=== PATIENT | male | born 1955 | race Caucasian/White ===

== ENCOUNTER → 2016-10-01 | Outpatient (CLI) | payer MEDICARE ==
[2016-10-01 10:38] LABS: ABSOLUTE BASOPHILS # (AUTO) 0.1 10^3/uL (0.0-0.2); ABSOLUTE EOSINOPHILS # (AUTO) 0.2 10^3/uL (0.0-0.6); ABSOLUTE LYMPHOCYTES (AUTO) 1.3 10^3/uL (0.5-4.7); ABSOLUTE MONOCYTES (AUTO) 0.7 10^3/uL (0.1-1.4); ABSOLUTE NEUT (AUTO) 5.1 10^3/uL (1.7-8.2); BASOPHILS % (AUTO) 0.9 % (0-2); EOSINOPHILS % (AUTO) 2.7 % (0-6); HEMATOCRIT 44.4 % (37.9-51.0); HEMOGLOBIN 15.2 g/dL (13.5-17.0); HGB HCT DIFFERENCE 1.2; LYMPHOCYTES % (AUTO) 18.2 % (13-45); MEAN CORPUSCULAR HEMOGLOBIN 28.2 pg (27.0-33.4); MEAN CORPUSCULAR HGB CONC 34.3 g/dL (32.0-36.0); MEAN CORPUSCULAR VOLUME 82 fl (80-97); MONOCYTES % (AUTO) 9.3 % (3-13); RED CELL DISTRIBUTION WIDTH 14.5 % (11.5-14.0); SEGMENTED NEUTROPHILS % (AUTO) 68.9 % (42-78); WHITE BLOOD COUNT 7.4 10^3/uL (4.0-10.5)
[2016-10-01 10:49] LABS: APPEARANCE,URINE CLEAR; BILIRUBIN,URINE NEGATIVE (NEGATIVE); GLUCOSE, URINE >=500 mg/dL (NEGATIVE); KETONES,URINE NEGATIVE (NEGATIVE); LEUKOCYTE ESTERASE,URINE NEGATIVE (NEGATIVE); NITRITE,URINE NEGATIVE (NEGATIVE); PROTEIN,URINE >=500 mg/dL (NEGATIVE); UROBILINOGEN,URINE NEGATIVE mg/dL (<2.0)
[2016-10-01 10:59] LABS: ALANINE AMINOTRANSFERASE 20 U/L (21-72); ALBUMIN 2.8 g/dL (3.5-5.0); ALKALINE PHOSPHATASE 115 U/L (38-126); ANION GAP 9 (5-19); ASPARTATE AMINO TRANSFERASE 22 U/L (17-59); BILIRUBIN,DIRECT 0.4 mg/dL (0.0-0.4); BILIRUBIN,TOTAL 0.5 mg/dL (0.2-1.3); BLOOD UREA NITROGEN 38 mg/dL (7-20); CALCIUM 9.4 mg/dL (8.4-10.2); CARBON DIOXIDE 27 mmol/L (22-30); CHLORIDE 104 mmol/L (98-107); CREATININE RESULT 3.41 mg/dL (0.52-1.25); GLUCOSE 189 mg/dL (75-110); PHOSPHORUS 4.8 mg/dL (2.5-4.5); POTASSIUM 3.7 mmol/L (3.6-5.0); SODIUM 139.7 mmol/L (137-145); TOTAL PROTEIN 5.8 g/dL (6.3-8.2)
[2016-10-01 11:07] LABS: URINE CREATININE 62.2 mg/dL (22-328)
[2016-10-01 11:23] LABS: URINE PROTEIN 891.1 mg/dL (<12)
[2016-10-02 13:48] LABS: VITAMIN D 25-HYDROXY 18.4 ng/mL (30.0-100.0)
== END ==
LOC: OD 09:25
PROVIDERS: ATTEND Internal Medicine
DX: N18.4 Chronic kidney disease, stage 4 (severe) (principal); E55.9 Vitamin D deficiency, unspecified
CPT/HCPCS: 36415; 80053; 81001; 82306; 82570; 83970; 84100; 84156; 85025

== ENCOUNTER → 2017-01-13 | Outpatient (CLI) | payer MEDICARE ==
[2017-01-13 10:48] LABS: APPEARANCE,URINE CLEAR; BILIRUBIN,URINE NEGATIVE (NEGATIVE); GLUCOSE, URINE >=500 mg/dL (NEGATIVE); KETONES,URINE NEGATIVE (NEGATIVE); LEUKOCYTE ESTERASE,URINE NEGATIVE (NEGATIVE); NITRITE,URINE NEGATIVE (NEGATIVE); PROTEIN,URINE >=500 mg/dL (NEGATIVE); URINE SPECIFIC GRAVITY 1.012; UROBILINOGEN,URINE NEGATIVE mg/dL (<2.0)
[2017-01-13 10:49] LABS: ABSOLUTE BASOPHILS # (AUTO) 0.1 10^3/uL (0.0-0.2); ABSOLUTE EOSINOPHILS # (AUTO) 0.2 10^3/uL (0.0-0.6); ABSOLUTE LYMPHOCYTES (AUTO) 1.4 10^3/uL (0.5-4.7); ABSOLUTE MONOCYTES (AUTO) 0.8 10^3/uL (0.1-1.4); ABSOLUTE NEUT (AUTO) 6.5 10^3/uL (1.7-8.2); BASOPHILS % (AUTO) 0.7 % (0-2); EOSINOPHILS % (AUTO) 2.3 % (0-6); HEMATOCRIT 43.3 % (37.9-51.0); HEMOGLOBIN 14.3 g/dL (13.5-17.0); HGB HCT DIFFERENCE -0.4; LYMPHOCYTES % (AUTO) 15.6 % (13-45); MEAN CORPUSCULAR HEMOGLOBIN 27.7 pg (27.0-33.4); MEAN CORPUSCULAR VOLUME 84 fl (80-97); MONOCYTES % (AUTO) 8.5 % (3-13); RED BLOOD COUNT 5.17 10^6/uL (4.35-5.55); RED CELL DISTRIBUTION WIDTH 14.2 % (11.5-14.0); SEGMENTED NEUTROPHILS % (AUTO) 72.9 % (42-78); WHITE BLOOD COUNT 8.9 10^3/uL (4.0-10.5)
[2017-01-13 11:04] LABS: URINE CREATININE 77.8 mg/dL (22-328)
[2017-01-13 11:22] LABS: ALANINE AMINOTRANSFERASE 28 U/L (21-72); ALBUMIN 2.8 g/dL (3.5-5.0); ALKALINE PHOSPHATASE 106 U/L (38-126); ANION GAP 8 (5-19); ASPARTATE AMINO TRANSFERASE 21 U/L (17-59); BILIRUBIN,DIRECT 0.3 mg/dL (0.0-0.4); BILIRUBIN,TOTAL 0.4 mg/dL (0.2-1.3); BLOOD UREA NITROGEN 39 mg/dL (7-20); CALCIUM 8.6 mg/dL (8.4-10.2); CARBON DIOXIDE 25 mmol/L (22-30); CHLORIDE 108 mmol/L (98-107); CREATININE RESULT 3.65 mg/dL (0.52-1.25); GLUCOSE 145 mg/dL (75-110); PHOSPHORUS 5.5 mg/dL (2.5-4.5); POTASSIUM 4.5 mmol/L (3.6-5.0); SODIUM 141.4 mmol/L (137-145); TOTAL PROTEIN 5.6 g/dL (6.3-8.2)
[2017-01-13 11:44] LABS: URINE PROTEIN 1614.4 mg/dL (<12)
== END ==
LOC: OD 09:37
PROVIDERS: ATTEND Internal Medicine
DX: N18.4 Chronic kidney disease, stage 4 (severe) (principal)
CPT/HCPCS: 36415; 80053; 81001; 82570; 83970; 84100; 84156; 85025

== ENCOUNTER 2017-06-06 19:56 | Emergency (ER) | payer MEDICARE ==
[2017-06-06 20:31] LABS: ABSOLUTE BASOPHILS # (AUTO) 0.1 10^3/uL (0.0-0.2); ABSOLUTE EOSINOPHILS # (AUTO) 0.1 10^3/uL (0.0-0.6); ABSOLUTE LYMPHOCYTES (AUTO) 0.7 10^3/uL (0.5-4.7); ABSOLUTE MONOCYTES (AUTO) 1.2 10^3/uL (0.1-1.4); ABSOLUTE NEUT (AUTO) 4.2 10^3/uL (1.7-8.2); EOSINOPHILS % (AUTO) 1.7 % (0-6); HEMATOCRIT 40.5 % (37.9-51.0); HEMOGLOBIN 13.6 g/dL (13.5-17.0); LYMPHOCYTES % (AUTO) 11.3 % (13-45); MEAN CORPUSCULAR HEMOGLOBIN 27.6 pg (27.0-33.4); MEAN CORPUSCULAR HGB CONC 33.5 g/dL (32.0-36.0); MEAN CORPUSCULAR VOLUME 82 fl (80-97); MONOCYTES % (AUTO) 18.9 % (3-13); PLATELET COUNT 212 10^3/uL (150-450); RED BLOOD COUNT 4.91 10^6/uL (4.35-5.55); RED CELL DISTRIBUTION WIDTH 13.5 % (11.5-14.0); SEGMENTED NEUTROPHILS % (AUTO) 67.1 % (42-78); TOTAL CELLS COUNTED % (AUTO) 100 %; WHITE BLOOD COUNT 6.2 10^3/uL (4.0-10.5)
[2017-06-06] MEDS ORDERED: LIDOCAINE 2% VISCOUS SOLN 20 ML UDCUP PO ONE (20:50)
[2017-06-06] MEDS ORDERED: METOCLOPRAMIDE HCL ORAL SOLN 10 MG/10 ML UDCUP PO ONE (20:50)
[2017-06-06] MEDS ORDERED: MAG HYDROX/AL HYDROX/SIMETH SUSP 30 ML UDCUP PO ONE (20:50)
[2017-06-06] MEDS ORDERED: FAMOTIDINE 20 MG TABLET PO ONE (20:50)
[2017-06-06 20:53] LABS: ANION GAP 11 (5-19); BLOOD UREA NITROGEN 63 mg/dL (7-20); CALCIUM 9.2 mg/dL (8.4-10.2); CARBON DIOXIDE 23 mmol/L (22-30); CHLORIDE 105 mmol/L (98-107); GLUCOSE 117 mg/dL (75-110); POTASSIUM 3.9 mmol/L (3.6-5.0); SODIUM 138.8 mmol/L (137-145)
--- NOTE | 2017-06-06 20:56 | ER Document Report ---
ED General - General Chief Complaint: Shortness Of Breath Stated Complaint: DIFFICULTY BREATHING Time Seen by Provider: 06/06/17 20:24 Notes: Patient is a 61 year old male with past medical history of congestive heart failure, chronic kidney disease, hypertension, diabetes who presents with 3 days of progressively worsening shortness of breath. Patient states that the shortness of breath is persistent, worsened by exertion. Nothing improves the shortness of breath. He denies a history of similar symptoms in the past. He denies any increased weight gain, dietary indiscretions or missed medications. He takes both Bumex as well as metolazone. He has not seen his primary doctor regarding today's concerns. He denies any chest pain. No hemoptysis. No pleuritic pain. No unilateral leg swelling. Do not think any form of anticoagulation. States that symptoms have been worsening since onset. He does report that he has had similar symptoms in the past in the setting of fluid overload. He does arrive by EMS. TRAVEL OUTSIDE OF THE [place] IN LAST 30 DAYS: No - Related Data Allergies/Adverse Reactions: Sulfa (Sulfonamide Antibiotics) Allergy (Verified 12/11/15 18:11) Past Medical History - General Information source: Patient - Social History Smoking Status: Current Every Day Smoker Frequency of alcohol use: Occasional Drug Abuse: None Lives with: Alone Family History: Reviewed & Not Pertinent - Past Medical History Cardiac Medical History: Reports: Hx Congestive Heart Failure, Hx Heart Attack, Hx Hypercholesterolemia, Hx Hypertension Denies: Hx Coronary Artery Disease Pulmonary Medical History: Reports: Hx Pneumonia Denies: Hx Asthma, Hx Bronchitis, Hx COPD Neurological Medical History: Reports: Hx Cerebrovascular Accident - stroke in right eye. Denies: Hx Seizures Endocrine Medical History: Reports: Hx Diabetes Mellitus Type 1, Hx Diabetes Mellitus Type 2 Musculoskeltal Medical History: Reports Hx Arthritis - knees Psychiatric Medical History: Reports: Hx Anxiety Comment Only: Hx Depression - anxiety Past Surgical History: Reports: Hx Cardiac Catheterization, Hx Cardiac Surgery - BYPASSX3, Hx Orthopedic Surgery - right leg - Immunizations Hx Diphtheria, Pertussis, Tetanus Vaccination: No Review of Systems - Review of Systems Notes: Constitutional: Negative for fever. HENT: Negative for sore throat. Eyes: Negative for visual changes. Cardiovascular: Negative for chest pain. Respiratory: Positive for shortness of breath. Gastrointestinal: Negative for abdominal pain, vomiting or diarrhea. Genitourinary: Negative for dysuria. Musculoskeletal: Negative for back pain. Skin: Negative for rash. Neurological: Negative for headaches, weakness or numbness. 10 point ROS negative except as marked above and in HPI. Physical Exam - Vital signs Vitals: Resp Pulse Ox 30 H 98 06/06/17 20:15 06/06/17 20:15 Interpretation: Hypertensive, Tachypneic Notes: PHYSICAL EXAMINATION: General: In moderate respiratory distress. HEAD: Atraumatic, normocephalic. EYES: Pupils equal round and reactive to light, extraocular movements intact, sclera anicteric, conjunctiva are normal. ENT: nares patent, oropharynx clear without exudates. Mild dry mucous membranes. NECK: Normal range of motion, supple without lymphadenopathy LUNGS: Tachypneic with an initial respiratory rate of 32 breaths per minute. Slightly diminished at the bases bilaterally. Slight end expiratory wheeze in the lower lobes bilaterally. HEART: Regular rate and rhythm without murmurs ABDOMEN: Soft, nontender, normoactive bowel sounds. No guarding, no rebound. No masses appreciated. EXTREMITIES: Normal range of motion, no pitting or edema. No cyanosis. NEUROLOGICAL: No focal neurological deficits. Moves all extremities spontaneously and on command. PSYCH: Normal mood, normal affect. SKIN: Warm, Dry, normal turgor, no rashes or lesions noted. Course - Re-evaluation Re-evalutation: 06/06/17 20:51 Patient presents with increased shortness of breath for the past 3 days. Patient does have visibly increased work of breathing on initial examination, breathing approximately 28-30 times per minute, saturating 95% on room air. He is quite hypertensive blood pressure 186 on 100. She has no history of COPD or asthma. He does have a known history of CHF but does take both bumetanide as well as metolazone for diuresis. He does not know his dry weight. On examination patient is tachypneic, slightly diminished at the bases bilaterally. Faint end expiratory wheezing at the bases bilaterally. No tachycardia. Patient denies any pleuritic pain, no clinical history or risk factors to suggest acute pulmonary embolus. He states he felt exactly the same in the past and he has become fluid overloaded with associated pulmonary edema. EKG without any acute ischemic changes. Chest x-ray shows cardiomegaly, patchy infiltrate at the right base. Given patient's elevated blood pressure, will begin a nitroglycerin infusion, placed on BiPAP, continue to reassess frequently 06/06/17 21:49 Patient has had improved work of breathing on BiPAP. BP is improved on nitro drip currently at 60 mcg/min. No chest pain. Labs do demonstrate a significant worsening of the patient's renal function currently a creatinine of 6.22 GFR is 9 from 3.8 creatinine in December with a GFR of 21 at that time. His proBNP is also markedly elevated today at 22,900 up from 6800 on the most recent check. His weight however is not increased as his current weight is 105 kg actually down from 108 kg on his most recent visit in December and he has no overt signs of volume overload on chest x-ray or clinical examination. We do not currently have nephrology coverage and I believe the patient may also require interventional cardiology involvement as his troponin is elevated at 0.199 again much elevated from his baseline. Although this could be secondary to his worsening renal function in the context of having increasing shortness of breath for the past several days I cannot definitively exclude this would be an ACS event. He continues on a nitroglycerin drip. Given that he is not having any chest pain I will not yet administer Lovenox. Aspirin has been administered. I have contacted [facility] where patient has been in the past for transfer. They do not immediately have beds available but he will be placed on a waiting list. 06/06/17 22:11 I spoke with who has accepted that patient. They do not have a bed currently. Patient remains clinically improved on BiPAP with a nitroglycerin infusion. Will continue to monitor closely 06/06/17 23:46 Patient has self discontinued BiPAP and continues to breathe at a much more acceptable rate at this time, saturating 94% on room air. He remains without tachycardia and blood pressure is well controlled at this time at 139/83 on 70 mg/min of nitroglycerin. 06/07/17 03:36 Troponin is down trended. Patient continues without chest pain. Continues to tolerate being off of BiPAP. Continues on the nitroglycerin infusion. Awaiting transfer - Vital Signs Vital signs: Temp Pulse Resp BP Pulse Ox 99.1 F 99 26 H 182/79 H 96 06/07/17 11:13 06/07/17 11:13 06/07/17 11:13 06/07/17 11:13 06/07/17 11:13 - Laboratory Result Diagrams: 06/06/17 20:15 06/06/17 20:15 Laboratory results interpreted by me: 06/06/17 06/06/17 06/06/17 20:15 20:15 20:15 Lymphocytes % 11.3 L Monocytes % 18.9 H BUN 63 H Creatinine 6.22 H Est GFR ( Amer) 11 L Est GFR (Non-Af Amer) 9 L Glucose 117 H NT-Pro-B Natriuret Pep 63643 H - Diagnostic Test Radiology reviewed: Image reviewed, Reports reviewed Radiology results interpreted by me: 06/06/17 23:45 Chest x-ray: Patchy infiltrate at the right lower base. Vascular congestion without overt pulmonary edema. Cardiomegaly - EKG Interpretation by Me Additional EKG results interpreted by me: 06/07/17 03:36 Sinus rhythm. Rate 92. Right bundle branch block. No ST elevations or depressions. Unchanged from prior. QTC is 510. Critical Care Note - Critical Care Note Total time excluding time spent on procedures (mins): 36 Comments: Critical care time spent obtaining history from patient or surrogate, discussions with consultants, development of treatment plan with patient or surrogate, evaluation of patient's response to treatment, examination of patient , ordering and performing treatments and interventions, ordering and review of laboratory studies, re-evaluation of patient's condition, ordering and review of radiographic studies and review of old charts Discharge - Discharge Clinical Impression: Hypertensive emergency, Respiratory distress Acute on chronic kidney failure Qualifiers: Acute renal failure type: unspecified Chronic kidney disease stage: unspecified stage Qualified Code(s): N17.9 - Acute kidney failure, unspecified Condition: Fair Disposition: [facility] Referrals: FREDA WALLACE MD [Primary Care Provider] - Follow up as needed
--- NOTE | 2017-06-06 21:05 | RADIOLOGY REPORT (SQ) ---
EXAM DESCRIPTION: CHEST SINGLE VIEW COMPLETED DATE/TIME: 06/06/2017 8:47 pm REASON FOR STUDY: shortness of breath COMPARISON: AP chest 12/11/2015 EXAM PARAMETERS: NUMBER OF VIEWS: One view. TECHNIQUE: Single frontal radiographic view of the chest acquired. RADIATION DOSE: NA LIMITATIONS: Lordotic portable technique FINDINGS: LUNGS AND PLEURA: No opacities, masses or pneumothorax. No pleural effusion. MEDIASTINUM AND HILAR STRUCTURES: No masses. Contour normal. HEART AND VASCULAR STRUCTURES: Mild cardiomegaly, old sternotomy and CABG BONES: No acute findings. HARDWARE: None in the chest. OTHER: No other significant finding. IMPRESSION: NO ACUTE RADIOGRAPHIC FINDING IN THE CHEST. TECHNICAL DOCUMENTATION: JOB ID: [id number] [employer]- All Rights Reserved
[2017-06-06 21:12] LABS: A TYPE INFLUENZA AG NEGATIVE (NEGATIVE); B INFLUENZA AG NEGATIVE (NEGATIVE)
[2017-06-06] MEDS: NITROGLYCERIN/D5W 50 MG/250 ML RTUINJ IV PRN (21:14)
[2017-06-06] MEDS ORDERED: FENOFIBRATE NANOCRYSTALLIZED 145 MG TABLET ONE (21:49)
[2017-06-06] MEDS ORDERED: ASPIRIN 81 MG TABLET, CHEWABLE PO ONE (21:56)
--- NOTE | 2017-06-06 22:40 | EKG REPORT ---
SEVERITY:- ABNORMAL ECG - SINUS RHYTHM PROBABLE LEFT ATRIAL ABNORMALITY RBBB AND LPFB WITH SECONDARY ST-T CHANGES : Confirmed by: Acosta Mcdermott 06-Jun-2017 22:39:39
--- NOTE | 2017-06-07 10:56 | ER Document Report ---
Doctor's Note Notes: 06/07/17 10:48 Patient was rounded upon in the morning after citations were seen, he had taken himself off nitroglycerin and BiPAP, he was attempting to leave but it appears that he did speak to someone at [facility] and was able to get the transfer approved faster. [facility] called back and stated that they will take the patient ED to ED. We are awaiting transport at this time. Patient wishes to go by private vehicle expansion at this is a terrible idea that he needs to be on the nitro drip and on a supplemental oxygenation as he is in obvious respiratory distress. Patient finally agrees and will get back into bed
[2017-06-07] MEDS: NITROGLYCERIN/D5W 50 MG/250 ML RTUINJ IV PRN (11:12)
[2017-06-07] MEDS ORDERED: ACETAMINOPHEN 325 MG TABLET PO ONE (11:16)
[2017-06-07 11:18] VITALS: BP 182/79
== END 2017-06-07 11:48 | disposition short-term general hospital (02) ==
LOC: ER 19:56
DX: N17.9 Acute kidney failure, unspecified (principal); I16.0 Hypertensive urgency; R06.00 Dyspnea, unspecified; F17.200 Nicotine dependence, unspecified, uncomplicated; I50.9 Heart failure, unspecified; E78.00 Pure hypercholesterolemia, unspecified; E11.9 Type 2 diabetes mellitus without complications; I25.2 Old myocardial infarction; Z88.2 Allergy status to sulfonamides; Z86.73 Personal history of transient ischemic attack (TIA), and cerebral infarction without residual deficits; Z95.1 Presence of aortocoronary bypass graft
CPT/HCPCS: 93005; 99291; 96365; 36415; 85025; 80048; 84484; 87804; 83880; 71045; 93010; 94660; A9270 ×4; J3490 ×3

== ENCOUNTER 2020-06-10 19:46 | Inpatient (IN) | payer MEDICARE ==
[2020-06-10 20:20] LABS: HEMATOCRIT 40.6 % (37.9-51.0); HEMOGLOBIN 13.2 g/dL (13.5-17.0); MEAN CORPUSCULAR HEMOGLOBIN 28.6 pg (27.0-33.4); MEAN CORPUSCULAR HGB CONC 32.6 g/dL (32.0-36.0); MEAN CORPUSCULAR VOLUME 88 fl (80-97); PLATELET COUNT 136 10^3/uL (150-450); RED BLOOD COUNT 4.62 10^6/uL (4.35-5.55); RED CELL DISTRIBUTION WIDTH 17.3 % (11.5-14.0); WHITE BLOOD COUNT 9.1 10^3/uL (4.0-10.5)
[2020-06-10 20:32] LABS: ALBUMIN 4.2 g/dL (3.5-5.0); ALKALINE PHOSPHATASE 131 U/L (38-126); ANION GAP 14 (5-19); ASPARTATE AMINO TRANSFERASE 18 U/L (17-59); BILIRUBIN,DIRECT 0.4 mg/dL (0.0-0.4); BILIRUBIN,TOTAL 0.5 mg/dL (0.2-1.3); BLOOD UREA NITROGEN 35 mg/dL (7-20); CALCIUM 9.2 mg/dL (8.4-10.2); CARBON DIOXIDE 27 mmol/L (22-30); CHLORIDE 97 mmol/L (98-107); CREATINE KINASE 61 U/L (55-170); GLUCOSE 227 mg/dL (75-110); TOTAL PROTEIN 7.7 g/dL (6.3-8.2)
[2020-06-10 20:44] LABS: CREATINE KINASE MB 2.1 ng/mL (<4.55)
[2020-06-10 20:45] LABS: ABSOLUTE LYMPHOCYTES# (MANUAL) 0.1 10^3/uL (0.5-4.7); ABSOLUTE MONOCYTES # (MANUAL) 0.1 10^3/uL (0.1-1.4); BASOPHILS % (MANUAL) 0 % (0-2); EOSINOPHILS % (MANUAL) 1 % (0-6); LYMPHOCYTES % (MANUAL) 1 % (13-45); MONOCYTES % (MANUAL) 1 % (3-13); SEGMENTED NEUTROPHILS % (MAN) 97 % (42-78); TOTAL CELLS COUNTED 100
[2020-06-10 20:46] LABS: ANISOCYTOSIS 1+; BURR CELLS SLIGHT; OVALOCYTES SLIGHT; PLATELET COMMENT DECREASED; POIKILOCYTOSIS SLIGHT; TOXIC GRANULATION SLIGHT
[2020-06-10 20:52] LABS: TROPONIN I 0.128 ng/mL
[2020-06-10] MEDS ORDERED: FENTANYL CITRATE INJ/PF 100 MCG/2 ML AMPUL IV ONE (20:55)
[2020-06-10] MEDS ORDERED: SODIUM POLYSTYRENE SULFONATE 15 GM/60 ML PO ONE (21:01)
[2020-06-10] MEDS ORDERED: INSULIN REG, HUMAN 100 UNIT/ML 3 ML VIAL (PYX) IV ONE (21:02)
[2020-06-10] MEDS ORDERED: DEXTROSE 50%-WATER 25 GM/50 ML DISP.SYRIN IV ONE (21:02)
--- NOTE | 2020-06-10 21:11 | RADIOLOGY REPORT (SQ) ---
CLINICAL INDICATION: fall. Pain and swelling. TECHNIQUE: 2 view(s) were obtained of the left knee. COMPARISON: None. FINDINGS: Acute mildly comminuted transverse fracture of the patella. This is nondisplaced. Osteoarthritis. Large joint effusion. Soft tissue swelling. Vascular calcification. IMPRESSION: Acute patellar fracture.
--- NOTE | 2020-06-10 22:08 | RADIOLOGY REPORT (SQ) ---
EXAM DESCRIPTION: CT HEAD WITHOUT CLINICAL HISTORY: 64 years Male, fall, head injury COMPARISON: CT head 12/11/2015 TECHNIQUE: Axial images of the head were performed without the use of intravenous contrast, with sagittal and coronal reformatted images. This exam was performed according to our departmental dose-optimization program which includes use of Automated Exposure Control, adjustment of the mA and/or kV according to patient size and/or use of iterative reconstruction technique. FINDINGS: No skull fracture. No intracranial bleed. No evidence of acute infarct. No evidence of mass or hydrocephalus. There is cortical atrophy and chronic white matter ischemic changes. There are bilateral old lacunar infarcts. There is no significant change, as compared with the prior CT scan. IMPRESSION: No skull fracture. No intracranial bleed.
--- NOTE | 2020-06-10 22:29 | RADIOLOGY REPORT (SQ) ---
Chest and left rib x-ray three views on 06/10/2020 at 9:59 PM CLINICAL INDICATION: Left lower rib pain after fall COMPARISON: Chest x-ray from 06/06/2017 FINDINGS: The patient is status post median sternotomy and CABG. Cardiomegaly is noted. Hilar and mediastinal contours are within normal limits. Mild vascular calcification is noted in the aorta. The lungs are clear. There is no pneumothorax or pleural effusion. Stent is noted in the left upper arm. No acute left rib fracture is noted. IMPRESSION: No acute disease and no acute left rib fracture.
[2020-06-11] MEDS ORDERED: CALCIUM GLUCONATE 1000 MG/10 ML INJ IV ONE (00:42)
[2020-06-11] MEDS ORDERED: FUROSEMIDE INJ/PF 40 MG/4 ML SDV IV ONE (00:45)
[2020-06-11] MEDS ORDERED: DEXTROSE 50%-WATER 25 GM/50 ML DISP.SYRIN IV ONE (00:50)
[2020-06-11] MEDS ORDERED: INSULIN REG, HUMAN 100 UNIT/ML 3 ML VIAL (PYX) IV ONE (00:50)
--- NOTE | 2020-06-11 00:51 | ER Document Report ---
ED Fall - General Chief Complaint: Fall Injury Stated Complaint: KNEE PAIN Time Seen by Provider: 06/10/20 20:41 TRAVEL OUTSIDE OF THE [place] IN LAST 30 DAYS: No - HPI Notes: Patient is a 64-year-old male with end-stage renal disease on dialysis Wednesday, Wednesday, Wednesday who presents after a fall. Patient lost his balance at home and fell onto his left knee. He then fell onto his left ribs and hit the top of his head on the linoleum floor. There was no loss of consciousness. He states he was ambulatory after the event. Patient is complaining of pain to his left knee, left anterior ribs, and the top of his head. He denies any chest pain or shortness of breath. States that he went to his normal dialysis today. - Related data Allergies/Adverse Reactions: Sulfa (Sulfonamide Antibiotics) Allergy (Verified 06/10/20 20:06) Home Medications: sertraline 100mg X2/QD,lansoprazole QD, atorvastatin 80mg QD,. amlodipine 10mg/QD, tamsulosin 0.4mg/QDalprazolam 2mg/prn, Past Medical History - General Information source: Patient, Relative - Social History Smoking Status: Never Smoker Chew tobacco use (# tins/day): No Frequency of alcohol use: None Drug Abuse: None Family History: Reviewed & Not Pertinent Patient has homicidal ideation: No - Past Medical History Cardiac Medical History: Reports: Hx Congestive Heart Failure, Hx Heart Attack, Hx Hypercholesterolemia, Hx Hypertension Denies: Hx Coronary Artery Disease Pulmonary Medical History: Reports: Hx Pneumonia Denies: Hx Asthma, Hx Bronchitis, Hx COPD Neurological Medical History: Reports: Hx Cerebrovascular Accident - stroke in right eye. Denies: Hx Seizures Endocrine Medical History: Reports: Hx Diabetes Mellitus Type 1, Hx Diabetes Mellitus Type 2 Renal/ Medical History: Denies: Hx Peritoneal Dialysis Musculoskeletal Medical History: Reports Hx Arthritis - knees Psychiatric Medical History: Reports: Hx Anxiety Comment Only: Hx Depression - anxiety Past Surgical History: Reports: Hx Cardiac Catheterization, Hx Cardiac Surgery - BYPASSX3, Hx Orthopedic Surgery - right leg - Immunizations Hx Diphtheria, Pertussis, Tetanus Vaccination: No Review of Systems - Review of Systems Notes: CONSTITUTIONAL: No fever, fatigue or weight loss. SKIN: No rash. HENT: No congestion, ear pain, or sore throat. EYES: No recent vision problems or eye pain. CARDIOVASCULAR: No chest pain or edema. RESPIRATORY: No cough, shortness of breath, congestion, or wheezing. GASTROINTESTINAL: No abdominal pain, nausea, vomiting. GENITOURINARY: No dysuria. MUSCULOSKELETAL: Pain and swelling to left knee. Pain to left anterior ribs. NEUROLOGIC: No headache, focal weakness or sensory changes. HEMATOLOGIC: No unusual bruising or bleeding. PSYCHIATRIC: No depression or anxiety. Physical Exam - Vital signs Vitals: Temp 97.6 F 06/10/20 19:46 - General General appearance: Appears well In distress: Mild Notes: VITAL SIGNS: Within normal limits. GENERAL: No acute distress, non-toxic appearance. HEAD: Normal with no signs of head trauma. EYES: Conjunctiva normal, no discharge. EARS: Hearing grossly intact. NOSE: Normal. NECK: Normal range of motion, no tenderness. No posterior cervical tenderness with CHEST: Clear breath sounds bilaterally. No wheezes, rales, or rhonchi. CARDIAC: Regular rate and rhythm. S1 and S2, without murmurs, gallops, or rubs. VASCULAR: No Edema. ABDOMEN: Normal and soft with no tenderness. GENITOURINARY: Normal, No tenderness MUSCULOSKELETAL: Effusion to the left knee. Discomfort to palpation of left knee. Straight leg testing of the left leg is intact. Strong dorsalis pedis pulse. No lacerations. NEUROLOGICAL: Alert. No focal sensory or strength deficits. Speech normal. Follows commands appropriately. PSYCHIATRIC: Normal Affect, judgement and mood. SKIN: Normal appearance with no rashes or lesions. Course - Re-evaluation Re-evalutation: 06/11/20 04:06 Patient is here with his friend who is also a physician. Patient states this was a mechanical fall. Lab work was ordered prior to my evaluation and he has an elevated potassium. Patient states he finished a full course of dialysis tod . I did discuss with his lead driver, Dr. Ortiz, who states that he is very noncompliant with his diet. He recommended I give him 45 of Kayexalate and do the hyperkalemia protocol. On reassessment, patient's potassium is still high. I discussed with the hospitalist as I can not send him home with these critical lab values. I have ordered insulin again and Lasix as he takes Lasix at home a nd makes a small amount of urine. The hospitalist, Dr. Singh, recommended that I give him a 500 cc normal saline bolus and Patiromer. Nurse states that patient has been very sleepy, he is arousable to voice but goes back to sleep. She was able to give him the medication orally. He still has not made stool or urine. His friend left but told the nurse that he was concerned about him going home as he seems a little bit more off than normal. I did check an ABG and this is normal. His CAT scan is unremarkable. He is easily arousable. Possibly, this could be from his electrolyte abnormalities. I will discuss with the hospitalist for admission. I have called Dr. Ortiz and relayed the update to him. He recommended I give him a soap suds enema and recheck his potassium 30 minutes after that. 06/11/20 06:22 - Vital Signs Vital signs: Temp Pulse Resp BP Pulse Ox 98.1 F 19 151/80 H 96 06/11/20 06:00 06/11/20 05:31 06/11/20 05:31 06/11/20 05:31 - Laboratory Results Result Diagrams: 06/10/20 19:52 06/11/20 03:00 Laboratory Results Interpreted: 06/10/20 06/10/20 06/10/20 19:52 19:52 22:04 Hgb 13.2 L RDW 17.3 H Plt Count 136 L Seg Neuts % (Manual) 97 H Lymphocytes % (Manual) 1 L Monocytes % (Manual) 1 L Abs Neuts (Manual) 8.8 H Abs Lymphs (Manual) 0.1 L Potassium 6.0 H* Chloride 97 L BUN 35 H Creatinine 8.68 H Est GFR ( Amer) 8 L Est GFR (MDRD) Non-Af 6 L Glucose 227 H POC Glucose 199 H Alkaline Phosphatase 131 H 06/11/20 06/11/20 06/11/20 00:13 01:11 03:00 Hgb RDW Plt Count Seg Neuts % (Manual) Lymphocytes % (Manual) Monocytes % (Manual) Abs Neuts (Manual) Abs Lymphs (Manual) Potassium 6.2 H* 6.1 H* Chloride BUN Creatinine Est GFR ( Amer) Est GFR (MDRD) Non-Af Glucose POC Glucose 205 H Alkaline Phosphatase Critical Laboratory Results Reviewed: Yes Attending or Supervising Physician who Reviewed Labs: CHERIE BALTAZAR - Radiology Results Critical Radiology Results Reviewed: No Critical Results Critical Care Note - Critical Care Note Total time excluding time spent on procedures (mins): 50 Comments: Upon my evaluation, this patient had a high probability of imminent or life- threatening deterioration due to hyperkalemia, which required my direct attention, intervention, and personal management. I have personally provided 50 minutes of critical care time. Time includes review of laboratory data, radiology notes, discussion with consultants, and monitoring for potential decompensation. Interventions were performed as documented above. Discharge - Discharge Clinical Impression: Hyperkalemia, End stage renal disease, Rib pain on left side Fracture of left patella Qualifiers: Encounter type: initial encounter Fracture type: closed Fracture morphology: comminuted Fracture alignment: nondisplaced Qualified Code(s): S82.045A - Nondisplaced comminuted fracture of left patella, initial encounter for closed fracture Head injury Qualifiers: Encounter type: initial encounter Qualified Code(s): S09.90XA - Unspecified injury of head, initial encounter Condition: Stable Disposition: ADMITTED OBSERVATION Admitting Provider: Samantha (Hospitalist) Unit Admitted: Telemetry
[2020-06-11] MEDS ORDERED: NORMAL SALINE 500 ML IV ONE (01:11)
[2020-06-11] MEDS ORDERED: PATIROMER 8.4 GM SUSP PACKET ONE (01:47)
[2020-06-11 01:48] LABS: ARTERIAL BLOOD BASE EXCESS -2.3 mmol/L; ARTERIAL BLOOD FIO2 ROOM AIR; ARTERIAL BLOOD H2CO3 1.24 mmol/L (1.05-1.35); ARTERIAL BLOOD O2 SATURATION 95.7 % (94-98); ARTERIAL BLOOD PCO2 41.3 mmHg (35-45); ARTERIAL BLOOD PH 7.36 (7.35-7.45); ARTERIAL BLOOD PO2 81.7 mmHg (80-100); ARTERIAL BLOOD TOTAL CO2 24.2 mmol/L (23-27)
[2020-06-11] MEDS: PATIROMER 8.4 GM SUSP PACKET PO SCH ×2 (02:02→17:35)
[2020-06-11] MEDS ORDERED: NORMAL SALINE 1000 ML 1,000 ML IV PRN (04:47)
--- NOTE | 2020-06-11 04:59 | PDOC H&P ---
History of Present Illness Admission Date/PCP: RICARDO LAWRENCE PA-C History of Present Illness: SOURAV GONZALEZ JR is a 64 year old male with end-stage renal disease who had dialysis on Wednesday and apparently suffered a mechanical fall at home and came in because his left knee was hurting. He has a nondisplaced patellar fracture and was put in a knee immobilizer and will follow up outpatient with orthopedics. For some reason they decided to check labs on him and found that his potassium was elevated at 6. They called Dr. Ortiz who recommended that the patient be admitted. They gave him some Kayexalate and thought that that would bring his potassium down a couple of hours but it obviously did not. I gave him a 500 cc bolus of IV fluids but his potassium has not changed. He has no evidence of arrhythmia on his telemetry or EKG. Past Medical History Cardiac Medical History: Reports: Congestive Heart Failure, Myocardial Infarction, Hyperlipidema, Hypertension Denies: Coronary Artery Disease Pulmonary Medical History: Reports: Pneumonia Denies: Asthma, Bronchitis, Chronic Obstructive Pulmonary Disease (COPD) Neurological Medical History: Denies: Seizures Endocrine Medical History: Reports: Diabetes Mellitus Type 1, Diabetes Mellitus Type 2 Musculoskeltal Medical History: Reports: Arthritis - knees Psychiatric Medical History: Comment Only: Depression - anxiety Hematology: Reports: Anemia Past Surgical History Past Surgical History: Reports: Cardiac Catheterization, Orthopedic Surgery - right leg Social History Smoking Status: Never Smoker Electronic Cigarette use?: No Frequency of Alcohol Use: Occasional Hx Recreational Drug Use: No Drugs: Cocaine, Marijuana Hx Prescription Drug Abuse: No Family History Family History: Reviewed & Not Pertinent Parental Family History Reviewed: Yes Children Family History Reviewed: Yes Sibling(s) Family History Reviewed.: Yes Medication/Allergy Home Medications: Amlodipine Besylate 10 tab PO DAILY 08/07/15 Bumetanide 2 tab PO DAILY 08/07/15 Insulin Glargine,Hum.rec.anlog [Lantus] 50 units SUBCUT QPM 08/07/15 Meloxicam 7.5 tab PO BID 08/07/15 Metolazone 5 mg PO Q2DAYS 08/07/15 Oxycodone HCl/Acetaminophen [Percocet 2.5-325 Mg Tablet] 1 each PO 6XD #14 tablet 12/12/15 Allergies/Adverse Reactions: Sulfa (Sulfonamide Antibiotics) Allergy (Verified 06/10/20 20:06) Review of Systems All systems: reviewed and no additional remarkable complaints except as stated - All systems were reviewed and were negative except as noted in the HPI Physical Exam Vital Signs: Temp Pulse Resp BP Pulse Ox 97.6 F 15 158/79 H 95 06/10/20 19:46 06/11/20 03:31 06/11/20 03:31 06/11/20 03:31 Intake & Output 06/09/20 06/10/20 06/11/20 06:59 06:59 06:59 Intake Total 560 Balance 560 Weight 97.4 kg General appearance: PRESENT: no acute distress, cooperative, disheveled, obese Head exam: PRESENT: atraumatic, normocephalic Eye exam: PRESENT: EOMI, PERRLA. ABSENT: conjunctival injection, nystagmus, scleral icterus Ear exam: PRESENT: normal external ear exam Mouth exam: PRESENT: moist, neck supple Neck exam: PRESENT: full ROM. ABSENT: carotid bruit, JVD, lymphadenopathy, meningismus, tenderness, thyromegaly Respiratory exam: PRESENT: clear to auscultation dell, symmetrical, unlabored. ABSENT: accessory muscle use, chest wall tenderness, crackles, prolonged expiratory phas, rhonchi, tachypnea, wheezes Cardiovascular exam: PRESENT: RRR, +S1, +S2 Pulses: PRESENT: normal carotid pulses Vascular exam: PRESENT: normal capillary refill GI/Abdominal exam: PRESENT: normal bowel sounds, soft. ABSENT: distended, guarding, rebound, tenderness Extremities exam: PRESENT: joint swelling - Left knee, tenderness - Left knee. ABSENT: clubbing, pedal edema Neurological exam: PRESENT: awake, oriented to person, oriented to place, oriented to situation, CN II-XII grossly intact. ABSENT: motor sensory deficit Psychiatric exam: PRESENT: flat affect Skin exam: PRESENT: dry, warm Results Laboratory Results: 06/10/20 19:52 06/11/20 03:00 06/10/20 06/10/20 06/11/20 19:52 19:52 00:13 WBC 9.1 RBC 4.62 Hgb 13.2 L Hct 40.6 MCV 88 MCH 28.6 MCHC 32.6 RDW 17.3 H Plt Count 136 L Seg Neutrophils % Not Reportable Carbonic Acid HCO3/H2CO3 Ratio ABG pH ABG pCO2 ABG pO2 ABG HCO3 ABG O2 Saturation ABG Base Excess FiO2 Sodium 137.7 Potassium 6.0 H* 6.2 H* Chloride 97 L Carbon Dioxide 27 Anion Gap 14 BUN 35 H Creatinine 8.68 H Est GFR ( Amer) 8 L Glucose 227 H Calcium 9.2 Total Bilirubin 0.5 AST 18 Alkaline Phosphatase 131 H Total Protein 7.7 Albumin 4.2 06/11/20 06/11/20 01:36 03:00 WBC RBC Hgb Hct MCV MCH MCHC RDW Plt Count Seg Neutrophils % Carbonic Acid 1.24 HCO3/H2CO3 Ratio 18:1 ABG pH 7.36 ABG pCO2 41.3 ABG pO2 81.7 ABG HCO3 23.0 ABG O2 Saturation 95.7 ABG Base Excess -2.3 FiO2 ROOM AIR Sodium Potassium 6.1 H* Chloride Carbon Dioxide Anion Gap BUN Creatinine Est GFR ( Amer) Glucose Calcium Total Bilirubin AST Alkaline Phosphatase Total Protein Albumin 06/10/20 06/10/20 06/11/20 19:52 19:52 00:13 Creatine Kinase 61 CK-MB (CK-2) 2.10 Troponin I 0.128 0.120 Impressions: Knee X-Ray 06/10/20 00:00 IMPRESSION: Acute patellar fracture. Ribs w/Chest X-Ray 06/10/20 20:53 IMPRESSION: No acute disease and no acute left rib fracture. Head CT 06/10/20 20:58 IMPRESSION: No skull fracture. No intracranial bleed. Assessment and Plan - Diagnosis (1) End stage renal disease Is this a current diagnosis for this admission?: Yes (2) Fracture of left patella Qualifiers: Encounter type: initial encounter Fracture type: closed Fracture morphology: comminuted Fracture alignment: nondisplaced Qualified Code(s): S82.045A - Nondisplaced comminuted fracture of left patella, initial encounter for closed fracture Is this a current diagnosis for this admission?: Yes (3) Hyperkalemia Is this a current diagnosis for this admission?: Yes - Plan Summary Summary: He is in a knee immobilizer and will follow up with orthopedics as an outpatient. It is a nondisplaced fracture so it is probably nonsurgical management. For his potassium, he got some patiromer are not too long ago and since the onset of action is about 7 hours, it will probably be some time before we see a change in his serum potassium. He is not showing any evidence of any c ardiac disturbance. We are going to give him some IV fluids and repeat a metabolic panel in a few hours. Once his potassium is down below 5.5 he can probably be discharged home. - Time Time Spent with patient: 35 or more minutes Anticipated Discharge Disposition: Home, Self Care Anticipated Discharge Timeframe: within 24 hours
[2020-06-11 06:10] LABS: APPEARANCE,URINE SLIGHTLY-CLOUDY; BILIRUBIN,URINE NEGATIVE (NEGATIVE); COLOR,URINE YELLOW; GLUCOSE, URINE >=500 mg/dL (NEGATIVE); KETONES,URINE NEGATIVE (NEGATIVE); LEUKOCYTE ESTERASE,URINE LARGE (NEGATIVE); NITRITE,URINE NEGATIVE (NEGATIVE); PROTEIN,URINE >=500 mg/dL (NEGATIVE); URINE SPECIFIC GRAVITY 1.012; UROBILINOGEN,URINE NEGATIVE mg/dL (<2.0)
--- NOTE | 2020-06-11 09:23 | EKG REPORT ---
SEVERITY:- ABNORMAL ECG - SINUS RHYTHM VENTRICULAR PREMATURE COMPLEX RBBB AND LPFB : Confirmed by: Jhony Sherman MD 11-Jun-2020 09:22:41
[2020-06-11] MEDS: HYDROMORPHONE HCL INJ/PF 2 MG/ML AMPULE IV PRN ×2 (13:07→21:27)
[2020-06-11] MEDS: CEFTRIAXONE 2 GM/D5W RTU 2 GM/50 ML RTUPB IV SCH (13:08)
--- NOTE | 2020-06-11 17:24 | Progress Note ---
Provider Note Provider Note: Patient seen and examined by me. Please see H&P by Dr. Singh from late morning admission for full details. Briefly, patient admitted for hyperkalemia acute on chronic in the setting of hemodialysis dependent ESRD. Nephrology consulted and I discussed the case with them. Of note, patient also has a UTIstart the patient on ceftriaxone. He does state he continues to make urine intermittently. Per Dr. Ortiz, patient is notoriously noncompliant with both medications and his diet and likely developed hyperkalemia after dialysis due to this noncompliance. He said the patient can be potentially discharged tomorrow if his mentation clears and he can have dialysis at his usual time outpatient. Otherwise, it may be difficult to schedule him for dialysis here as we are understaffed due to the current pandemic. He recommended patient get Kayexalate and soapsuds enema which have been ordered.
[2020-06-11] MEDS ORDERED: ALPRAZOLAM 0.5 MG TABLET PO ONE (23:30)
[2020-06-11] MEDS ORDERED: DEXTROSE 40% GEL 15 GM TUBE X 2 PO PRN (23:30)
[2020-06-11] MEDS ORDERED: GLUCAGON,HUMAN RECOMB 1 MG INJ IM PRN (23:30)
[2020-06-11] MEDS ORDERED: TAMSULOSIN HCL 0.4 MG CAP.SR.24H PO ONE (23:30)
[2020-06-11] MEDS ORDERED: DEXTROSE 40% GEL 15 GM TUBE PO PRN (23:30)
[2020-06-11] MEDS ORDERED: DEXTROSE 50%-WATER SYRINGE 12.5 GM/25 ML DOSE IV PRN (23:30)
[2020-06-11] MEDS ORDERED: ATORVASTATIN CALCIUM 80 MG TABLET PO ONE (23:30)
[2020-06-11] MEDS ORDERED: DEXTROSE 50%-WATER SYRINGE 25 GM/50 ML DOSE IV PRN (23:30)
[2020-06-12] MEDS: INSULIN LISPRO 100 UNIT/ML 3 ML VIAL SUBCUT SCH ×3 (09:49→17:21)
[2020-06-12] MEDS: TAMSULOSIN HCL 0.4 MG CAP.SR.24H PO SCH (09:51)
[2020-06-12] MEDS: CEFTRIAXONE 2 GM/D5W RTU 2 GM/50 ML RTUPB IV SCH (09:52)
[2020-06-12 10:45] LABS: ANION GAP 19 (5-19); BLOOD UREA NITROGEN 70 mg/dL (7-20); CALCIUM 8.7 mg/dL (8.4-10.2); CARBON DIOXIDE 21 mmol/L (22-30); CHLORIDE 92 mmol/L (98-107); GLUCOSE 222 mg/dL (75-110); POTASSIUM 5.3 mmol/L (3.6-5.0)
--- NOTE | 2020-06-12 12:37 | PDOC CONSULTATION ---
Consultation Consult Date: 06/12/20 Provider Consulted: Jesenia PETERS Consult reason:: ESRD with hyperkalemia History of Present Illness Admission Date/PCP: 06/11/20 14:11 RICARDO LAWRENCE PA-C History of Present Illness: SOURAV GONZALEZ JR is a 64 year old male with end-stage renal disease who had dialysis on Wednesday and apparently suffered a mechanical fall at home and came in because his left knee was hurting. He has a nondisplaced patellar fracture and was put in a knee immobilizer and will follow up outpatient with orthopedics. For some reason they decided to check labs on him and found that his potassium was elevated at 6. So he was given the usual hyperkalemic treatments including SPS/Veltassa. However patient was only dropping K slowly and therefore was kept under observation. He is currently waiting to see orthopedic surgeon to see if he can be sent home with conservative measures. This morning labs shows potassium down to 5.3. Unfortunately patient has got severe history of noncompliance with diet and medications resulting in persistently high potassium/phosphorus levels at the outpatient dialysis center-[facility]. He says he is he has been trying to change and trying to get this under control which is often repeated excuse from this patient unfortunately. Patient denies any history of chest pain or shortness of breath. The patient was subsequently seen this evening on dialysis as he has not yet to be seen by orthopedic surgeon for plans to be made for any potential discharge. Therefore dialysis was initiated on a 1K bath for an hour followed by 2K for 1.5 hours. Patient seems very comfortable and hemodynamically stable. Dialysis orders were reviewed with the treating dialysis nurse. Past Medical History Cardiac Medical History: Reports: Hyperlipidemia, Myocardial Infarction Denies: Coronary Artery Disease Pulmonary Medical History: Reports: Pneumonia Denies: Asthma, Bronchitis, Chronic Obstructive Pulmonary Disease (COPD) Neurological Medical History: Denies: Seizures Endocrine Medical History: Reports: Diabetes Mellitus Type 1, Diabetes Mellitus Type 2 Musculoskeltal Medical History: Reports: Arthritis - knees Psychiatric Medical History: Denies: Depression - anxiety Past Surgical History Past Surgical History: Reports: Cardiac Catheterization, Orthopedic Surgery - right leg Social History Smoking Status: Former Smoker Electronic Cigarette use?: No Number of Years Smokin Frequency of Alcohol Use: Rare Hx Recreational Drug Use: No Drugs: Cocaine, Marijuana Hx Prescription Drug Abuse: No Family History Parental Family History Reviewed: Yes - Negative for ESRD Children Family History Reviewed: No Sibling(s) Family History Reviewed.: No Medication/Allergy Home Medications: Alprazolam [Xanax] 2 mg PO DAILY 06/11/20 Alprazolam [Xanax] 2 mg PO QHS 06/11/20 Amlodipine Besylate [Norvasc 10 mg Tablet] 10 mg PO DAILY 06/11/20 Aspirin [Ecotrin 81 mg EC Tablet] 81 mg PO DAILY 06/11/20 Atorvastatin Calcium [Lipitor 80 mg Tablet] 80 mg PO QHS 06/11/20 Furosemide [Lasix 40 mg Tablet] 40 mg PO DAILY 06/11/20 Insulin Lispro [Humalog Insulin 100 Unit/1 ml 3 ml Vial] 0 unit SUBCUT .SLD SCA LE 06/11/20 Lansoprazole [Prevacid 15 Mg Odt Tablet] 15 mg PO QAM 06/11/20 Sertraline HCl [Zoloft 50 mg Tablet] 200 mg PO DAILY 06/11/20 Tamsulosin HCl [Flomax 0.4 mg Cap.sr] 0.8 mg PO DAILY 06/11/20 Allergies/Adverse Reactions: Sulfa (Sulfonamide Antibiotics) Allergy (Verified 06/10/20 20:06) Review of Systems Constitutional: ABSENT: fever(s), headache(s), weakness Nose, Mouth, and Throat: ABSENT: mouth pain, sore throat Cardiovascular: ABSENT: edema, orthropnea, palpitations Genitourinary: ABSENT: dysuria, hematuria Musculoskeletal: PRESENT: other - Pain around left knee joint where he has fractured his patella.. ABSENT: deformity, joint swelling Integumentary: ABSENT: lesions, pruritus, rash Neurological: ABSENT: abnormal speech, confusion, focal weakness, frequent falls Physical Exam Vital Signs: Temp Pulse Resp BP Pulse Ox 97.6 F 75 16 133/67 H 97 06/12/20 10:00 06/12/20 07:44 06/12/20 07:44 06/12/20 07:44 06/12/20 07:44 Intake & Output 06/11/20 06/12/20 06/13/20 06:59 06:59 06:59 Intake Total 560 2970 Output Total 250 Balance 310 2970 Weight 97.4 kg 94.7 kg General appearance: PRESENT: no acute distress Mouth exam: PRESENT: moist, neck supple Neck exam: ABSENT: meningismus, tenderness, thyromegaly, tracheal deviation Respiratory exam: PRESENT: clear to auscultation dell, decreased breath sounds. ABSENT: crackles Cardiovascular exam: PRESENT: +S1, +S2 GI/Abdominal exam: PRESENT: normal bowel sounds, soft. ABSENT: organomegaly, tenderness Extremities exam: ABSENT: pedal edema Neurological exam: PRESENT: alert, awake, oriented to person, oriented to place Psychiatric exam: PRESENT: appropriate affect Results Laboratory Results: 06/10/20 19:52 06/12/20 09:51 06/11/20 06/12/20 12:42 09:51 Sodium 131.5 L Potassium 5.8 H 5.3 H Chloride 92 L Carbon Dioxide 21 L Anion Gap 19 BUN 70 H Creatinine 11.19 H Est GFR ( Amer) 6 L Glucose 222 H Calcium 8.7 06/10/20 06/10/20 06/11/20 19:52 19:52 00:13 Creatine Kinase 61 CK-MB (CK-2) 2.10 Troponin I 0.128 0.120 Impressions: Knee X-Ray 06/10/20 00:00 IMPRESSION: Acute patellar fracture. Ribs w/Chest X-Ray 06/10/20 20:53 IMPRESSION: No acute disease and no acute left rib fracture. Head CT 06/10/20 20:58 IMPRESSION: No skull fracture. No intracranial bleed. Assessment & Plan - Diagnosis (1) End stage renal disease Is this a current diagnosis for this admission?: Yes Plan: Patient currently undergoing dialysis being supervised. Vital signs are stable. Hyperkalemia was an indication besides the fact that today was his due date. Patient unfortunately is severely noncompliant with his diet and runs chronically elevated potassium and phosphorus which is unfortunate. Not responded to multiple corrective measures including making him understand the severe consequences of high potassium. Dialysis is ongoing and plan to remove 2-3 L of fluid as tolerated. Dialysis orders were reviewed with the treating dialysis nurse. (2) Fracture of left patella Qualifiers: Encounter type: initial encounter Fracture type: closed Fracture morphology: comminuted Fracture alignment: nondisplaced Qualified Code(s): S82.045A - Nondisplaced comminuted fracture of left patella, initial encounter for closed fracture Is this a current diagnosis for this admission?: Yes Plan: As per hospitalist/orthopedic surgeon. (3) Hyperkalemia Is this a current diagnosis for this admission?: Yes Plan: Should respond to dialysis. Monitor. Repeat labs again tomorrow morning. (4) Hypertension Qualifiers: Hypertension type: unspecified secondary hypertension Qualified Code(s): I15.9 - Secondary hypertension, unspecified Plan: Controlled. Monitor. (5) Diabetes mellitus Plan: As per hospitalist.
[2020-06-12] MEDS: HYDROMORPHONE HCL INJ/PF 2 MG/ML AMPULE IV PRN (14:09)
[2020-06-12] MEDS: PATIROMER 8.4 GM SUSP PACKET PO SCH (18:40)
[2020-06-12] MEDS ORDERED: ALPRAZOLAM 0.5 MG TABLET PO PRN (20:12)
[2020-06-12] MEDS ORDERED: ATORVASTATIN CALCIUM 80 MG TABLET PO SCH (22:00)
[2020-06-13] MEDS: HYDROMORPHONE HCL INJ/PF 2 MG/ML AMPULE IV PRN (06:19)
--- NOTE | 2020-06-13 08:20 | PDOC PROGRESS REPORT ---
Subjective Subjective:: Per Previous Physician: "SOURAV GONZALEZ JR is a 64 year old male with end-stage renal disease who had dialysis on Wednesday and apparently suffered a mechanical fall at home and came in because his left knee was hurting. He has a nondisplaced patellar fracture and was put in a knee immobilizer and will follow up outpatient with orthopedics. For some reason they decided to check labs on him and found that his potassium was elevated at 6. They called Dr. Ortiz who recommended that the patient be admitted. They gave him some Kayexalate and thought that that would bring his potassium down a couple of hours but it obviously did not. I gave him a 500 cc bolus of IV fluids but his potassium has not changed. He has no evidence of arrhythmia on his telemetry or EKG." 06/12/2020 Patient appears to be doing much better today. I spoke with Dr. Ortiz who will be arranging dialysis for the patient today given that the patient is unable to be discharged as he is awaiting orthopedics consult. I called Dr. Wisdom who stated his associate Dr. Arambula would be seeing the patient today for his patellar fracture. They will let us know the patient requires any surgical intervention and what his weightbearing status can be at discharge. I have also ordered physical therapy to assess the patient. Reason For Visit: HYPERKALEMIA Physical Exam Vital Signs: Temp Pulse Resp BP Pulse Ox 97.3 F 79 18 150/61 H 95 06/13/20 04:38 06/13/20 04:38 06/13/20 04:38 06/13/20 04:38 06/13/20 04:38 Intake & Output 06/12/20 06/13/20 06/14/20 06:59 06:59 06:59 Intake Total 2970 410 Output Total 3600 Balance 2970 -3190 Weight 94.7 kg 92.9 kg Exam: General appearance: PRESENT: no acute distress, chronically ill-appearing elderly white male Head exam: PRESENT: atraumatic, normocephalic Eye exam: PRESENT: conjunctiva pink. ABSENT: scleral icterus Mouth exam: PRESENT: moist Respiratory exam: PRESENT: clear to auscultation dell. ABSENT: rales, rhonchi, wheezes Cardiovascular exam: PRESENT: RRR. ABSENT: diastolic murmur, rubs, systolic murmur GI/Abdominal exam: PRESENT: normal bowel sounds, soft. ABSENT: distended, guarding, mass, organolmegaly, rebound, tenderness Neurological exam: PRESENT: alert, awake, oriented to person, oriented to place, oriented to time, oriented to situation Psychiatric exam: PRESENT: appropriate affect, normal mood Skin exam: PRESENT: dry, intact, warm Musculoskeletal exam: Severe left patellar pain Results Laboratory Results: 06/10/20 19:52 06/12/20 09:51 06/12/20 09:51 Sodium 131.5 L Potassium 5.3 H Chloride 92 L Carbon Dioxide 21 L Anion Gap 19 BUN 70 H Creatinine 11.19 H Est GFR ( Amer) 6 L Glucose 222 H Calcium 8.7 06/10/20 06/10/20 06/11/20 19:52 19:52 00:13 Creatine Kinase 61 CK-MB (CK-2) 2.10 Troponin I 0.128 0.120 Impressions: Knee X-Ray 06/10/20 00:00 IMPRESSION: Acute patellar fracture. Ribs w/Chest X-Ray 06/10/20 20:53 IMPRESSION: No acute disease and no acute left rib fracture. Head CT 06/10/20 20:58 IMPRESSION: No skull fracture. No intracranial bleed. Assessment and Plan - Diagnosis (1) Diabetes mellitus Qualifiers: Diabetes mellitus type: type 2 Diabetes mellitus intermission coordinator insulin use: with chcf use Diabetes mellitus complication status: with kidney complications Diabetes mellitus complication detail: with chronic kidney disease Is this a current diagnosis for this admission?: Yes (2) End stage renal disease Is this a current diagnosis for this admission?: Yes (3) Fracture of left patella Qualifiers: Encounter type: initial encounter Fracture type: closed Fracture morphology: comminuted Fracture alignment: nondisplaced Qualified Code(s): S82.045A - Nondisplaced comminuted fracture of left patella, initial encounter for closed fracture Is this a current diagnosis for this admission?: Yes (4) Head injury Qualifiers: Encounter type: initial encounter Qualified Code(s): S09.90XA - Unspecified injury of head, initial encounter Is this a current diagnosis for this admission?: Yes (5) Hyperkalemia Is this a current diagnosis for this admission?: Yes (6) UTI (urinary tract infection) Is this a current diagnosis for this admission?: Yes (7) Abdominal pain Qualifiers: Abdominal location: generalized Qualified Code(s): R10.84 - Generalized abdominal pain Is this a current diagnosis for this admission?: Yes (8) Chronic renal insufficiency Is this a current diagnosis for this admission?: Yes - Plan Summary Summary: (1) Fracture of patella, left, closed Qualifiers: Encounter type: initial encounter Fracture alignment: nondisplaced Is this a current diagnosis for this admission?: Yes Plan: Due to fall onto left knee Seen on x-ray Orthopedic consulted Physical therapy (2) ESRD (end stage renal disease) on dialysis Is this a current diagnosis for this admission?: Yes Plan: Per Previous Physician: "Dialysis patient w/ MWF schedule. Per family, patient had a partial session on Wednesday (d/c early due to patient hip pain/discomfort) and missed dialysis today. Nonoliguric. Discussed patient with nursing upholstery department supervisor and Neprhologist. Per Dr. Ortiz, he can make arrangements for patient to receive dialysis on only. Due to current number of admitted dialysis patients, and admitted patients anticipated to need new/emergent dialysis in the next 24-48 hours, [facility] has already exceeded dialysis capacity. As the patient's length of stay is anticipated to be >48 hours it is recommended that tertiary facilities be contacted regarding bed availability related to dialysis needs." Nephrology consulted: Arranging dialysis here Per Dr. Ortiz, patient is known to be extremely noncompliant both with his renal diet and also with his dialysis regimen and medications (3) Noncompliance of patient with renal dialysis Is this a current diagnosis for this admission?: Yes (4) Essential hypertension Is this a current diagnosis for this admission?: Yes Plan: Home medications and dialysis (5) Hyperkalemia, diminished renal excretion Is this a current diagnosis for this admission?: Yes Plan: Due to ESRD and noncompliance with diet Given Kayexalate with soapsuds enema Dialysis - Time Time Spent with patient: 25-34 minutes Medications reviewed and adjusted accordingly: Yes Anticipated Discharge Disposition: Home with Home Health Anticipated Discharge Timeframe: within 48 hours
[2020-06-13] MEDS: INSULIN LISPRO 100 UNIT/ML 3 ML VIAL SUBCUT SCH ×3 (08:27→17:35)
[2020-06-13] MEDS: TAMSULOSIN HCL 0.4 MG CAP.SR.24H PO SCH (09:41)
[2020-06-13] MEDS: CEFTRIAXONE 2 GM/D5W RTU 2 GM/50 ML RTUPB IV SCH (09:41)
--- NOTE | 2020-06-13 12:03 | RADIOLOGY REPORT (SQ) ---
EXAM DESCRIPTION: KNEE LEFT 2 VIEWS IMAGES COMPLETED DATE/TIME: 06/13/2020 11:12 am REASON FOR STUDY: fractured patella, ?displaced N39.0 URINARY TRACT INFECTION, SITE NOT SPECIFIED COMPARISON: None. NUMBER OF VIEWS: Two views. TECHNIQUE: AP and lateral radiographic images acquired of the left knee. LIMITATIONS: None. FINDINGS: MINERALIZATION: Osteopenia. BONES: Re- demonstration of a nondisplaced comminuted fracture of the patella. Background of tricomp artmental degenerative changes. JOINT: Persistent, albeit diminished suprapatellar effusion. SOFT TISSUES: Vascular calcifications and surgical clips. OTHER: No other significant finding. IMPRESSION: Re- demonstration of a nondisplaced comminuted fracture of the patella. Persistent, alb eit diminished suprapatellar effusion. TECHNICAL DOCUMENTATION: JOB ID: [id number] 2010 [employer]- All Rights Reserved Reading location - IP/workstation name: [email or web address]
[2020-06-13] MEDS ORDERED: HYDROMORPHONE HCL INJ/PF 2 MG/ML AMPULE IV PRN (12:48)
[2020-06-13] MEDS ORDERED: AMLODIPINE BESYLATE 10 MG TABLET PO SCH (13:30)
--- NOTE | 2020-06-13 14:24 | PDOC CONSULTATION ---
Consultation Consult Date: 06/13/20 Provider Consulted: BRYAN IVAN JR History of Present Illness Admission Date/PCP: 06/11/20 14:11 RICARDO LAWRENCE PA-C Patient complains of: Left knee pain History of Present Illness: SOURAV GONZALEZ JR is a 64 year old male who had a mechanical fall at home a few days ago. He presented to the emergency department where he was instructed to follow-up as an outpatient with orthopedics with a knee immobilizer. During his stay in the emergency department he was found to have increased potassium. Of note the patient has severe renal disease on dialysis. He was admitted for further treatment of his kidney disease. He was placed in a knee immobilizer in the emergency department. He complains of left knee pain from the injury. Since that time he has been able to ambulate but with pain. He was placed in a knee immobilizer in the emergency department. Pain is aching, sore, throbbing in nature, localized to the left anterior knee, worse with any bending or weightbearing, better with rest and pain medication. He denies any other associated injury or symptoms leading up to the fall. He denies altered sensorium or head injury. Upon entering the patient's room he had remove the knee immobilizer and had his knee in a flexed position, approximately 30 to 40 degrees. I discussed that he needs to be wearing the knee immobilizer at all time however he explained that he finds it uncomfortable and has worn it for 3 days and he does not want a wait anymore. Past Medical History Cardiac Medical History: Reports: Congestive Heart Failure, Myocardial Infarction, Hyperlipidema, Hypertension Denies: Coronary Artery Disease Pulmonary Medical History: Reports: Pneumonia Denies: Asthma, Bronchitis, Chronic Obstructive Pulmonary Disease (COPD) Neurological Medical History: Denies: Seizures Endocrine Medical History: Reports: Diabetes Mellitus Type 1, Diabetes Mellitus Type 2 Musculoskeltal Medical History: Reports: Arthritis - knees Psychiatric Medical History: Denies: Depression - anxiety Hematology: Reports: Anemia Past Surgical History Past Surgical History: Reports: Cardiac Catheterization, Orthopedic Surgery - right leg Social History Smoking Status: Former Smoker Electronic Cigarette use?: No Number of Years Smokin Frequency of Alcohol Use: Rare Hx Recreational Drug Use: No Drugs: Cocaine, Marijuana Hx Prescription Drug Abuse: No Family History Family History: Reviewed & Not Pertinent Parental Family History Reviewed: Yes Children Family History Reviewed: Yes Sibling(s) Family History Reviewed.: Yes Medication/Allergy Home Medications: Alprazolam [Xanax] 2 mg PO DAILY 06/11/20 Alprazolam [Xanax] 2 mg PO QHS 06/11/20 Amlodipine Besylate [Norvasc 10 mg Tablet] 10 mg PO DAILY 06/11/20 Aspirin [Ecotrin 81 mg EC Tablet] 81 mg PO DAILY 06/11/20 Atorvastatin Calcium [Lipitor 80 mg Tablet] 80 mg PO QHS 06/11/20 Furosemide [Lasix 40 mg Tablet] 40 mg PO DAILY 06/11/20 Insulin Lispro [Humalog Insulin 100 Unit/1 ml 3 ml Vial] 0 unit SUBCUT .SLD SCALE 06/11/20 Lansoprazole [Prevacid 15 Mg Odt Tablet] 15 mg PO QAM 06/11/20 Sertraline HCl [Zoloft 50 mg Tablet] 200 mg PO DAILY 06/11/20 Tamsulosin HCl [Flomax 0.4 mg Cap.sr] 0.8 mg PO DAILY 06/11/20 Allergies/Adverse Reactions: Sulfa (Sulfonamide Antibiotics) Allergy (Verified 06/10/20 20:06) Review of Systems Review of Systems: Constitutional: ABSENT: anorexia, chills, night sweats Cardiovascular: ABSENT: chest pain Respiratory: ABSENT: dyspnea Gastrointestinal: ABSENT: vomiting Genitourinary: ABSENT: dysuria Integumentary: ABSENT: rash Neurological: ABSENT: confusion, memory loss, numbness Psychiatric: ABSENT: hallucinations Hematologic/Lymphatic: ABSENT: easy bleeding Physical Exam Vital Signs: Temp Pulse Resp BP Pulse Ox 97.9 F 74 21 H 163/68 H 99 06/13/20 11:09 06/13/20 11:09 06/13/20 11:09 06/13/20 11:09 06/13/20 11:09 Intake & Output 06/12/20 06/13/20 06/14/20 06:59 06:59 06:59 Intake Total 2970 410 640 Output Total 3600 400 Balance 2970 -3190 240 Weight 94.7 kg 92.9 kg Physical Exam: General appearance: PRESENT: no acute distress, cooperative, well-nourished Head exam: PRESENT: atraumatic, normocephalic Eye exam: PRESENT: EOMI Ear exam: PRESENT: normal external ear exam Mouth exam: PRESENT: neck supple Neck exam: ABSENT: tracheal deviation Respiratory exam: PRESENT: symmetrical, unlabored. ABSENT: accessory muscle use, wheezes Pulses: PRESENT: normal radial pulses, normal dorsalis pedis pulse Vascular exam: PRESENT: normal capillary refill GI/Abdominal exam: ABSENT: distended, firm Extremities exam: PRESENT: full ROM of bilateral shoulders, elbows wrists, knees, hips and ankles without pain Neurological exam: PRESENT: alert, awake, oriented to person, oriented to place, oriented to time Psychiatric exam: PRESENT: appropriate affect. ABSENT: agitated Focused psych exam: ABSENT: catatonic Skin exam: PRESENT: intact. ABSENT: dry All as above aside from that noted in the HPI and the following: Left lower extremity -Pulses 2+ distally -Compartments soft -Sensation grossly intact to L3-4-5 S1 -Motor grossly intact to EHL TA gastroc and quad Tenderness to palpation to the patella. Patient is not currently in a knee immobilizer Results Laboratory Results: 06/10/20 19:52 06/12/20 09:51 06/10/20 06/10/20 06/11/20 19:52 19:52 00:13 Creatine Kinase 61 CK-MB (CK-2) 2.10 Troponin I 0.128 0.120 Impressions: Ribs w/Chest X-Ray 06/10/20 20:53 IMPRESSION: No acute disease and no acute left rib fracture. Head CT 06/10/20 20:58 IMPRESSION: No skull fracture. No intracranial bleed. Knee X-Ray 06/13/20 00:00 IMPRESSION: Re- demonstration of a nondisplaced comminuted fracture of the patella. Persistent, albeit diminished suprapatellar effusion. Assessment & Plan - Diagnosis (1) Fracture of left patella Qualifiers: Encounter type: initial encounter Fracture type: closed Fracture morphology: comminuted Fracture alignment: nondisplaced Qualified Code(s): S82.045A - Nondisplaced comminuted fracture of left patella, initial encounter for closed fracture Is this a current diagnosis for this admission?: Yes Plan: The patient sustained a patella fracture that is transverse and relatively nondisplaced on initial imaging. He is to be nonweightbearing left lower extremity Wear a knee immobilizer at all times. Do not bend the knee. -Follow-up with Dr. Bryan Ivan, orthopedic surgeon at [facility] for surgery, in 10 days. Call for an appointment. . [address], [place] [address] -Tylenol for pain control.
--- NOTE | 2020-06-13 16:19 | PDOC DISCHARGE SUMMARY ---
Impression - Admit/DC Date/PCP Admission Date/Primary Care Provider: 06/11/20 14:11 RICARDO LAWRENCE PA-C Discharge Date: 06/13/20 - Discharge Diagnosis (1) Diabetes mellitus Is this a current diagnosis for this admission?: Yes (2) End stage renal disease Is this a current diagnosis for this admission?: Yes (3) Fracture of left patella Is this a current diagnosis for this admission?: Yes (4) Head injury Is this a current diagnosis for this admission?: Yes (5) Hyperkalemia Is this a current diagnosis for this admission?: Yes (6) UTI (urinary tract infection) Is this a current diagnosis for this admission?: Yes (7) Abdominal pain Is this a current diagnosis for this admission?: Yes (8) Chronic renal insufficiency Is this a current diagnosis for this admission?: Yes - Assessment Summary: Per Previous Physician: "SOURAV GONZALEZ JR is a 64 year old male with end-stage renal disease who had dialysis on Wednesday and apparently suffered a mechanical fall at home and came in because his left knee was hurting. He has a nondisplaced patellar fracture and was put in a knee immobilizer and will follow up outpatient with orthopedics. For some reason they decided to check labs on him and found that his potassium was elevated at 6. They called Dr. Ortiz who recommended that the patient be admitted. They gave him some Kayexalate and thought that that would bring his potassium down a couple of hours but it obviously did not. I gave him a 500 cc bolus of IV fluids but his potassium has not changed. He has no evidence of arrhythmia on his telemetry or EKG." 06/12/2020 Patient appears to be doing much better today. I spoke with Dr. Ortiz who will be arranging dialysis for the patient today given that the patient is unable to be discharged as he is awaiting orthopedics consult. I called Dr. Wisdom who stated his associate Dr. Arambula would be seeing the patient today for his patellar fracture. They will let us know the patient requires any surgical intervention and what his weightbearing status can be at discharge. I have also ordered physical therapy to assess the patient. Hyperkalemia resolved and patient received dialysis with significant improvement. He received 3 doses of IV ceftriaxone for UTI and UTI resolved. Recommended home health physical therapy and patient adamantly refuses. Discussed with case management the patient is to be nonweightbearing as outlined by orthopedics. He will need a great deal of help at home and we strongly recommended that he utilize home health at this time. Patient was offered crutches and/or a wheelchair discharge and he is chosen a wheelchair. Patient was counseled on nonweightbearing status per orthopedics. Per orthopedics physician: "The patient sustained a patella fracture that is transverse and relatively non displaced on initial imaging. He is to be nonweightbearing left lower extremity Wear a knee immobilizer at all times. Do not bend the knee. -Follow-up with Dr. Bryan Arambula, orthopedic surgeon at [facility] for surgery, in 10 days. Call for an appointment. . [address], [place] [address] -Tylenol for pain control." (1) Fracture of patella, left, closed Qualifiers: Encounter type: initial encounter Fracture alignment: nondisplaced Is this a current diagnosis for this admission?: Yes Plan: Due to fall onto left knee Seen on x-ray Orthopedic consulted: Recommend follow-up in the clinic, no surgical needs at this time Physical therapy home health adamantly refused by patient Follow-up with orthopedics outpatient (2) ESRD (end stage renal disease) on dialysis Is this a current diagnosis for this admission?: Yes Plan: Per Previous Physician: "Dialysis patient w/ MWF schedule. Per family, patient had a partial session on Wednesday (d/c early due to patient hip pain/discomfort) and missed dialysis today. Nonoliguric. Discussed patient with nursing forklift supervisor and Neprhologist. Per Dr. Ortiz, he can make arrangements for patient to receive dialysis on only. Due to current number of admitted dialysis patients, and admitted patients anticipated to need new/emergent dialysis in the next 24-48 hours, [facility] has already exceeded dialysis capacity. As the patient's length of stay is anticipated to be >48 hours it is recommended that tertiary facilities be contacted regarding bed availability related to dialysis needs." Nephrology consulted: Arranging dialysis here Per Dr. Ortiz, patient is known to be extremely noncompliant both with his renal diet and also with his dialysis regimen and medications Must adhere to a strict renal diet, I personally counseled the patient extensively on this (3) Noncompliance of patient with renal dialysis Is this a current diagnosis for this admission?: Yes (4) Essential hypertension Is this a current diagnosis for this admission?: Yes Plan: Home medications and dialysis (5) Hyperkalemia, diminished renal excretion Is this a current diagnosis for this admission?: Yes Plan: Due to ESRD and noncompliance with diet Given Kayexalate with soapsuds enema Dialysis Resolved UTI -Completed 3 days of IV ceftriaxone Resolved Did not make enough urine for a culture - Additional Information Resuscitation Status: Full Code Discharge Diet: Other (Comments) - Renal diet Discharge Activity: Activity As Tolerated, Balance Activity w/Rest Referrals: Jesenia ROTIZ MD [ACTIVE STAFF] - Home Medications: Alprazolam [Xanax] 2 mg PO DAILY 06/11/20 Alprazolam [Xanax] 2 mg PO QHS 06/11/20 Amlodipine Besylate [Norvasc 10 mg Tablet] 10 mg PO DAILY 06/11/20 Aspirin [Ecotrin 81 mg EC Tablet] 81 mg PO DAILY 06/11/20 Atorvastatin Calcium [Lipitor 80 mg Tablet] 80 mg PO QHS 06/11/20 Insulin Lispro [Humalog Insulin (Lispro) 100 unit/mL] 0 unit SUBCUT .SLD SCALE 06/11/20 Lansoprazole [Prevacid 15 mg Odt Tablet] 15 mg PO QAM 06/11/20 Sertraline HCl [Zoloft 50 mg Tablet] 200 mg PO DAILY 06/11/20 Tamsulosin HCl [Flomax 0.4 mg Cap.sr] 0.8 mg PO DAILY 06/11/20 History of Present Illiness History of Present Illness: SOURAV GONZALEZ JR is a 64 year old male Physical Exam Vital Signs: Temp Pulse Resp BP Pulse Ox 97.9 F 74 21 H 163/68 H 99 06/13/20 11:09 06/13/20 11:09 06/13/20 11:09 06/13/20 11:09 06/13/20 11:09 Intake & Output 06/12/20 06/13/20 06/14/20 06:59 06:59 06:59 Intake Total 2970 410 640 Output Total 3600 400 Balance 2970 -3190 240 Weight 94.7 kg 92.9 kg Exam: General appearance: PRESENT: no acute distress, chronically ill-appearing elderly white male, states he would like to be discharged home Head exam: PRESENT: atraumatic, normocephalic Eye exam: PRESENT: conjunctiva pink. ABSENT: scleral icterus Mouth exam: PRESENT: moist Respiratory exam: PRESENT: clear to auscultation dell. ABSENT: rales, rhonchi, wheezes Cardiovascular exam: PRESENT: RRR. ABSENT: diastolic murmur, rubs, systolic murmur GI/Abdominal exam: PRESENT: normal bowel sounds, soft. ABSENT: distended, guarding, mass, organolmegaly, rebound, tenderness Neurological exam: PRESENT: alert, awake, oriented to person, oriented to place, oriented to time, oriented to situation Psychiatric exam: PRESENT: appropriate affect, normal mood Skin exam: PRESENT: dry, intact, warm Musculoskeletal exam: Moderate left patellar pain Results Laboratory Results: WBC 9.1 10^3/uL (4.0-10.5) 06/10/20 19:52 RBC 4.62 10^6/uL (4.35-5.55) 06/10/20 19:52 Hgb 13.2 g/dL (13.5-17.0) L 06/10/20 19:52 Hct 40.6 % (37.9-51.0) 06/10/20 19:52 MCV 88 fl (80-97) 06/10/20 19:52 MCH 28.6 pg (27.0-33.4) 06/10/20 19:52 MCHC 32.6 g/dL (32.0-36.0) 06/10/20 19:52 RDW 17.3 % (11.5-14.0) H 06/10/20 19:52 Plt Count 136 10^3/uL (150-450) L 06/10/20 19:52 Lymph % (Auto) Not Reportable 06/10/20 19:52 [place] % (Auto) Not Reportable 06/10/20 19:52 Eos % (Auto) Not Reportable 06/10/20 19:52 Baso % (Auto) Not Reportable 06/10/20 19:52 Absolute Neuts (auto) Not Reportable 06/10/20 19:52 Absolute Lymphs (auto) Not Reportable 06/10/20 19:52 Absolute Monos (auto) Not Reportable 06/10/20 19:52 Absolute Eos (auto) Not Reportable 06/10/20 19:52 Absolute Basos (auto) Not Reportable 06/10/20 19:52 Total Counted 100 06/10/20 19:52 Seg Neutrophils % Not Reportable 06/10/20 19:52 Seg Neuts % (Manual) 97 % (42-78) H 06/10/20 19:52 Lymphocytes % (Manual) 1 % (13-45) L 06/10/20 19:52 Monocytes % (Manual) 1 % (3-13) L 06/10/20 19:52 Eosinophils % (Manual) 1 % (0-6) 06/10/20 19:52 Basophils % (Manual) 0 % (0-2) 06/10/20 19:52 Abs Neuts (Manual) 8.8 10^3/uL (1.7-8.2) H 06/10/20 19:52 Abs Lymphs (Manual) 0.1 10^3/uL (0.5-4.7) L 06/10/20 19:52 Abs Monocytes (Manual) 0.1 10^3/uL (0.1-1.4) 06/10/20 19:52 Absolute Eos (Manual) 0.1 10^3/uL (0.0-0.6) 06/10/20 19:52 Abs Basophils (Manual) 0.0 10^3/uL (0.0-0.2) 06/10/20 19:52 Toxic Granulation SLIGHT 06/10/20 19:52 Platelet Comment DECREASED 06/10/20 19:52 Poikilocytosis SLIGHT 06/10/20 19:52 Anisocytosis 1+ 06/10/20 19:52 Ovalocytes SLIGHT 06/10/20 19:52 Cecilio Cells SLIGHT 06/10/20 19:52 Carbonic Acid 1.24 mmol/L (1.05-1.35) 06/11/20 01:36 HCO3/H2CO3 Ratio 18:1 06/11/20 01:36 ABG pH 7.36 (7.35-7.45) 06/11/20 01:36 ABG pCO2 41.3 mmHg (35-45) 06/11/20 01:36 ABG pO2 81.7 mmHg (80-100) 06/11/20 01:36 ABG HCO3 23.0 mmol/L (20-24) 06/11/20 01:36 ABG Total CO2 24.2 mmol/L (23-27) 06/11/20 01:36 ABG O2 Saturation 95.7 % (94-98) 06/11/20 01:36 ABG Base Excess -2.3 mmol/L 06/11/20 01:36 FiO2 ROOM AIR 06/11/20 01:36 Sodium 131.5 mmol/L (137-145) L 06/12/20 09:51 Potassium 5.3 mmol/L (3.6-5.0) H 06/12/20 09:51 Chloride 92 mmol/L (98-107) L 06/12/20 09:51 Carbon Dioxide 21 mmol/L (22-30) L 06/12/20 09:51 Anion Gap 19 (5-19) 06/12/20 09:51 BUN 70 mg/dL (7-20) H 06/12/20 09:51 Creatinine 11.19 mg/dL (0.52-1.25) H 06/12/20 09:51 Est GFR ( Amer) 6 (>60) L 06/12/20 09:51 Est GFR (MDRD) Non-Af 5 (>60) L 06/12/20 09:51 Glucose 222 mg/dL (75-110) H 06/12/20 09:51 POC Glucose 247 mg/dL (70-110) H 06/13/20 11:10 Calcium 8.7 mg/dL (8.4-10.2) 06/12/20 09:51 Total Bilirubin 0.5 mg/dL (0.2-1.3) 06/10/20 19:52 Direct Bilirubin 0.4 mg/dL (0.0-0.4) 06/10/20 19:52 Neonat Total Bilirubin Not Reportable 06/10/20 19:52 Neonat Direct Bilirubin Not Reportable 06/10/20 19:52 Neonat Indirect Bili Not Reportable 06/10/20 19:52 AST 18 U/L (17-59) 06/10/20 19:52 ALT 12 U/L (<50) 06/10/20 19:52 Alkaline Phosphatase 131 U/L (38-126) H 06/10/20 19:52 Creatine Kinase 61 U/L (55-170) 06/10/20 19:52 CK-MB (CK-2) 2.10 ng/mL (<4.55) 06/10/20 19:52 Troponin I 0.120 ng/mL 06/11/20 00:13 Total Protein 7.7 g/dL (6.3-8.2) 06/10/20 19:52 Albumin 4.2 g/dL (3.5-5.0) 06/10/20 19:52 Urine Color YELLOW 06/11/20 05:42 Urine Appearance SLIGHTLY-CLOUDY 06/11/20 05:42 Urine pH 6.0 (5.0-9.0) 06/11/20 05:42 Ur Specific [place] 1.012 06/11/20 05:42 Urine Protein >=500 mg/dL (NEGATIVE) H 06/11/20 05:42 Urine Glucose (UA) >=500 mg/dL (NEGATIVE) H 06/11/20 05:42 Urine Ketones NEGATIVE mg/dL (NEGATIVE) 06/11/20 05:42 Urine Blood SMALL (NEGATIVE) H 06/11/20 05:42 Urine Nitrite NEGATIVE (NEGATIVE) 06/11/20 05:42 Urine Bilirubin NEGATIVE (NEGATIVE) 06/11/20 05:42 Urine Urobilinogen NEGATIVE mg/dL (<2.0) 06/11/20 05:42 Ur Leukocyte Esterase LARGE (NEGATIVE) H 06/11/20 05:42 Urine WBC (Auto) 93 /HPF 06/11/20 05:42 Urine RBC (Auto) 4 /HPF 06/11/20 05:42 U Hyaline Cast (Auto) 1 /LPF 06/11/20 05:42 Urine Bacteria (Auto) TRACE /HPF 06/11/20 05:42 Urine Ascorbic Acid NEGATIVE (NEGATIVE) 06/11/20 05:42 06/10/20 06/11/20 19:52 00:13 CK-MB (CK-2) 2.10 Troponin I 0.128 0.120 Impressions: Knee X-Ray 06/10/20 00:00 IMPRESSION: Acute patellar fracture. Ribs w/Chest X-Ray 06/10/20 20:53 IMPRESSION: No acute disease and no acute left rib fracture. Head CT 06/10/20 20:58 IMPRESSION: No skull fracture. No intracranial bleed. Knee X-Ray 06/13/20 00:00 IMPRESSION: Re- demonstration of a nondisplaced comminuted fracture of the patella. Persistent, albeit diminished suprapatellar effusion. Plan Plan of Treatment: Follow-up with PCP Follow-up with nephrology Attend dialysis as scheduled Nonweightbearing on left lower extremity Time Spent: Greater than 30 Minutes Stroke Is this a Stroke Patient?: No Acute Heart Failure Is this a Heart Failure Patient?: No
[2020-06-13] MEDS: PATIROMER 8.4 GM SUSP PACKET PO SCH (17:35)
[2020-06-13 18:05] VITALS: BP 158/63
== END 2020-06-13 19:40 | disposition home or self-care (01) | DRG 640 ==
LOC: ER 19:46 → EH 06-11 05:41 → 5 06-11 09:13 → OBSVTOIN 06-11 14:11
PROVIDERS: ADMIT Family Medicine; ATTEND Internal Medicine
PROC: 5A1D70Z Performance of Urinary Filtration, Intermittent, Less than 6 Hours Per Day (ICD-10-PCS; principal; 2020-06-12)
DX: E87.5 Hyperkalemia (principal); N18.6 End stage renal disease; I12.0 Hypertensive chronic kidney disease with stage 5 chronic kidney disease or end stage renal disease; S82.045A Nondisplaced comminuted fracture of left patella, initial encounter for closed fracture; N39.0 Urinary tract infection, site not specified; S09.90XA Unspecified injury of head, initial encounter; E11.22 Type 2 diabetes mellitus with diabetic chronic kidney disease; W19.XXXA Unspecified fall, initial encounter; E78.5 Hyperlipidemia, unspecified; R10.84 Generalized abdominal pain; D63.1 Anemia in chronic kidney disease; W18.30XA Fall on same level, unspecified, initial encounter; Y92.009 Unspecified place in unspecified non-institutional (private) residence as the place of occurrence of the external cause; Z91.15 Patient's noncompliance with renal dialysis; Z91.11 Patient's noncompliance with dietary regimen; Z79.4 Long term (current) use of insulin; Z79.82 Long term (current) use of aspirin; Z79.899 Other long term (current) drug therapy; I25.2 Old myocardial infarction; Z87.891 Personal history of nicotine dependence; Z88.2 Allergy status to sulfonamides; Z91.14 Patient's other noncompliance with medication regimen
CPT/HCPCS: 36415; 70450; 80048; 80053; 81001; 82550; 82553; 82803; 82962; 84132; 84484; 85025; 93005; 93010; J0610; J0696; J1170; J1815; J1940; J3010; J3490; J7030; J7040